=== PATIENT | male | born 1935 | race African-American/Black ===

== ENCOUNTER 2019-04-05 13:16 | Emergency (ER) | payer OTHER ==
[~2019-04-05] VITALS: Ht 175.3 cm; Wt 72.0 kg
[2019-04-05 14:18] VITALS: BP 122/78
== END 2019-04-05 14:20 | disposition home or self-care (01) ==
LOC: ER 13:30
DX: Z04.1 Encounter for examination and observation following transport accident (principal)
CPT/HCPCS: 99283